=== PATIENT | female | born 1990 | race Two or more races ===

== ENCOUNTER 2018-03-22 11:28 | Emergency (ER) | payer OTHER ==
[~2018-03-22] VITALS: Ht 162.6 cm; Wt 86.0 kg
[2018-03-22] MEDS ORDERED: IBUPROFEN 400MG TABLET PO ONE (12:30)
[2018-03-22 13:29] VITALS: BP 146/85
== END 2018-03-22 13:52 | disposition home or self-care (01) ==
LOC: ER 12:30
DX: R07.89 Other chest pain (principal); F41.9 Anxiety disorder, unspecified; I10 Essential (primary) hypertension; E78.5 Hyperlipidemia, unspecified; I25.10 Atherosclerotic heart disease of native coronary artery without angina pectoris; Z88.2 Allergy status to sulfonamides
CPT/HCPCS: 71045; 81025; 93005; 99284; Z7610